=== PATIENT | female | born 1960 | race Caucasian/White ===

== ENCOUNTER 2022-06-04 17:39 | Emergency (ER) | payer OTHER, SELFPAY ==
--- NOTE | ~2022-06-04 | CT_ITS ---
EXAMINATION: CT BRAIN WITHOUT CONTRAST. CHEST. CLINICAL INFORMATION: AMS. COMPARISON: None TECHNIQUE: Chest one view. 5 mm thin axial and reformatted 2 mm thin sagittal and coronal images of brain were obtained. DLP [id number] examination was performed using dose optimization technique as appropriate, variously including the following: Automated exposure control Adjustment of MA and/or KV according to patient size(this includes techniques or standardized protocols for targeted exams where dose is matched to indication/reason for exam; extremities or head. Use of iterative reconstruction techniques. FINDINGS: Chest: The lungs are hypoexpanded but clear of acute process. The heart size and pulmonary vascularity is normal. No gross bony abnormality seen. Brain: There is no acute intra-axial, extra-axial bleed, masses or midline shift there is no acute infarction evolution. There is no edema. The anand to white matter difference is maintained normal. The lateral ventricles are symmetrical in size and configuration without enlargement. Bone windows reveal no calvarial abnormality. No scalp soft tissue abnormality seen. Is mild mucoperiosteal thickening bilateral maxillary and left anterior ethmoid sinus. There is partial opacification of mastoid sinuses slightly greater on the left with a soft tissue density in the left middle meatus. There are surgical sutures in the right subcondylar mandible likely for an old healed fracture. CT/CT head/brain wo IV con IMPRESSION: Unremarkable chest exam. No acute intracranial process seen. Chronic bilateral maxillary and anterior ethmoid sinus inflammatory changes.
--- NOTE | 2022-06-04 17:44 | ED.AMS ---
HPI - Altered Mental Status General Chief Complaint: Neuro Symptoms/Deficit Stated Complaint: AMS, confusion per EMS Time Seen by Provider: 06/04/22 17:44 Source: EMS Mode of arrival: EMS History of Present Illness HPI narrative: Patient history of seizures otherwise healthy patient came back from work at 16:00 noted the patient is still in the bed confused no history of fall patient was normal yesterday had seizure about 2 years ago patient takes Tegretol. No signs of injury patient was normal last night left for work at 05:30 and at that time patient was sleeping Related Data Previous Rx's Medication Instructions Recorded levetiracetam 500 mg tablet 500 mg PO BID #60 tabs 06/04/22 (Keppra) Allergies Allergy/AdvReac Type Severity Reaction Status Date / Time codeine [CODEINE] Allergy Unknown ITCHING Unverified 02/11/20 19:20 Review of Systems Review of Systems: Yes all other systems are reviewed and are negative [facility] Past Medical History Medical History (Updated 06/05/22 @ 00:00 by Lucrecia Adams) Epilepsy Social History Social History Advance Directives: No Advance Directives Information Provided: Yes Physical Exam ED Vital Signs: Vital Signs - 24 hr 06/04/22 17:57 Temperature 99.0 F Pulse Rate 106 H Respiratory Rate 16 Blood Pressure 134/63 Pulse Oximetry 98 Oxygen Delivery Method Room Air BMI result Body Mass Index 26.9 Appearance: Alert. Oriented X1-2. Confused No acute distress. Eyes: PERRLA, No Nystagmus HEENT: Pharynx normal. Oral Mucosa moist atraumatic normocephalic no tongue bite Neck: Normal inspection. Neck supple. CVS: Normal heart rate and rhythm. Pulses normal. Respiratory: No respiratory distress. Equal air entry bilateral, no wheezing/rales/rhonchi Abdomen: Soft and nontender. Bowel sounds are present, no mass palpable, no CVA tenderness Skin: Skin warm and dry. Normal skin color. Normal skin turgor. Extremities: No lower extremity edema. No calf tenderness Neuro: Oriented X 1-2. Confuse, normal speech No motor deficit. No sensory deficit.No cerebellar signs , cranial nerves II-XII intact Course Reevaluation(s) Reevaluation #1: Patient just had a tonic-clonic seizure lasted for 1 minutes will give Ativan 2 mg and Keppra Time: 18:11 Medications Administered Discontinued Medications Generic Name Dose Route Start Last Admin Trade Name Luis PRN Reason Stop Dose Admin Sodium Chloride 1,000 mls @ 999 mls/hr 06/04/22 17:47 06/04/22 20:02 Ns IV 06/04/22 18:47 Infused .Q1H1M ONE Infusion Levetiracetam 1,000 mg in 100 mls @ 400 mls/hr 06/04/22 18:45 06/04/22 19:46 Keppra IV 06/04/22 18:59 Infused ONCE ONE Infusion Sodium Chloride 1,000 mls @ 999 mls/hr 06/04/22 18:54 06/04/22 20:03 Ns IV 06/04/22 19:54 999 mls/hr .Q1H1M ONE Administration Lorazepam 2 mg 06/04/22 18:13 06/04/22 18:15 Lorazepam 2 Mg/Ml Vial IVPUSH 06/04/22 18:14 2 mg ONCE STA Administration Ondansetron HCl 4 mg 06/04/22 20:00 06/04/22 20:03 Ondansetron Hcl 4 Mg/2 Ml Vial IVPUSH 06/04/22 20:01 4 mg ONCE ONE Administration Medical Decision Making Medical Decision Making [facility] Narrative: Patient history of seizures for the last 5 years on Tegretol level is therapeutic last seizure was 2 years ago came here with altered mental status patient had a witnessed seizure in the ER. During stay in the ED patient became more oriented says that she had a seizure earlier today and she took extra Tegretol she is pretty compliant with medication carbamazepine 200 mg twice daily. As patient had repeated episode of seizures will add patient on Keppra 500 mg twice daily advised to continue carbamazepine follow-up with Dr. Ames her neurologist Lab Data MDM Lab Attestation statement: I reviewed the patient's lab results. 06/04/22 18:21 06/04/22 18:53 Labs: Lab Results 06/04/22 06/04/22 06/04/22 Range/Units 17:49 18:21 18:21 WBC 12.4 H (4.8-10.8) X10*3/uL RBC 4.63 (4.20-5.50) X10*6/uL Hgb 14.5 (12.0-16.0) g/dl Hct 43.7 (37.0-47.0) % MCV 94.4 (80.0-98.0) fL MCH 31.3 (27.0-33.0) pg MCHC 33.2 (31.0-35.0) g/dl RDW 11.9 (11.0-16.0) % Plt Count 258 (160-400) X10*3/uL MPV 10.2 (9.4-12.3) fL Immature Gran % (Auto) 0.4 (0.0-0.4) % Neut % (Auto) 87.6 H (45-73) % Lymph % (Auto) 8.3 L (20-40) % [place] % (Auto) 3.2 (2-11) % Eos % (Auto) 0.0 (0-4) % Baso % (Auto) 0.5 (0-2) % Lymph # (Auto) 1.0 L (1.2-4.9) X10*3/uL [place] # (Auto) 0.4 (0.1-1.2) X10*3/uL Eos # (Auto) 0.0 (0.0-0.4) X10*3/uL Baso # (Auto) 0.1 (0.0-0.2) X10*3/uL Abs Immat Gran (auto) 0.05 H (0.00-0.03) X10*3/uL Absolute Neuts (auto) 10.8 H (2.0-8.3) x10*3/uL Absolute Nucleated RBC 0.000 (0.0-0.012) X10*3/uL Nucleated RBC % (auto) 0.0 (0.0-0.2) /100WBC PT (10.0-13.1) SEC INR (0.9-1.1) Sodium (135-145) mmol/L Potassium (3.3-5.1) mmol/L Chloride (96-108) mmol/L Carbon Dioxide (22-29) mmol/L Anion Gap (12-20) BUN (9-16) mg/dL Creatinine (0.5-1.4) mg/dL Estim Creat Clear Calc Estimated GFR POC Glucose 133 H (60-115) mg/dL Random Glucose (60-115) mg/dL Lactic Acid 2.9 H* (0.5-2.0) mmol/L Lactic Acid F/U @ 2Hr (0.5-2.0) mmol/L Calcium (8.4-10.2) mg/dL Magnesium (1.6-2.6) mg/dL Total Bilirubin (0.0-1.0) mg/dL AST (5-31) U/L ALT (0-31) U/L Alkaline Phosphatase (39-117) U/L Ammonia (13-55) umol/L Troponin I High Sens (<3.5-17.0) ng/L Total Protein (6.5-8.0) g/dL Albumin (3.5-5.0) g/dL Urine Color Urine Appearance Urine pH (5.0-9.0) Ur Specific [place] (1.005-1.025) Urine Protein (Neg-Trace) mg/dL Urine Glucose (UA) (Negative) mg/dL Urine Ketones (Negative) mg/dL Urine Blood (Negative) Urine Nitrite (Negative) Ur Leukocyte Esterase (Negative) Urine RBC (0-2) /HPF Urine WBC (0-5) /HPF Ur Squamous Epith Cells (0-2) /HPF Urine Bacteria (None Seen) Hyaline Casts (0-2) /LPF Urine Opiates Screen (Not Detect) Urine Fentanyl Screen (Not Detect) Ur Barbiturates Screen (Not Detect) Carbamazepine (5.0-12.0) mcg/mL Ur Phencyclidine Scrn (Not Detect) Ur Amphetamines Screen (Not Detect) U Benzodiazepines Scrn (Not Detect) Urine Cocaine Screen (Not Detect) U Marijuana (THC) Screen (Not Detect) COVID-19 (YVETTE) (Negative) COVID-19 Clin Com 06/04/22 06/04/22 06/04/22 Range/Units 18:53 18:53 19:09 WBC (4.8-10.8) X10*3/uL RBC (4.20-5.50) X10*6/uL Hgb (12.0-16.0) g/dl Hct (37.0-47.0) % MCV (80.0-98.0) fL MCH (27.0-33.0) pg MCHC (31.0-35.0) g/dl RDW (11.0-16.0) % Plt Count (160-400) X10*3/uL MPV (9.4-12.3) fL Immature Gran % (Auto) (0.0-0.4) % Neut % (Auto) (45-73) % Lymph % (Auto) (20-40) % [place] % (Auto) (2-11) % Eos % (Auto) (0-4) % Baso % (Auto) (0-2) % Lymph # (Auto) (1.2-4.9) X10*3/uL [place] # (Auto) (0.1-1.2) X10*3/uL Eos # (Auto) (0.0-0.4) X10*3/uL Baso # (Auto) (0.0-0.2) X10*3/uL Abs Immat Gran (auto) (0.00-0.03) X10*3/uL Absolute Neuts (auto) (2.0-8.3) x10*3/uL Absolute Nucleated RBC (0.0-0.012) X10*3/uL Nucleated RBC % (auto) (0.0-0.2) /100WBC PT (10.0-13.1) SEC INR (0.9-1.1) Sodium 139 (135-145) mmol/L Potassium 4.5 (3.3-5.1) mmol/L Chloride 107 (96-108) mmol/L Carbon Dioxide 21 L (22-29) mmol/L Anion Gap 16 (12-20) BUN 13 (9-16) mg/dL Creatinine 0.74 (0.5-1.4) mg/dL Estim Creat Clear Calc 88.1 Estimated GFR > 60 POC Glucose (60-115) mg/dL Random Glucose 150 H (60-115) mg/dL Lactic Acid (0.5-2.0) mmol/L Lactic Acid F/U @ 2Hr (0.5-2.0) mmol/L Calcium 8.7 (8.4-10.2) mg/dL Magnesium 1.7 (1.6-2.6) mg/dL Total Bilirubin 0.2 (0.0-1.0) mg/dL AST 12 (5-31) U/L ALT 11 (0-31) U/L Alkaline Phosphatase 85 (39-117) U/L Ammonia 47 (13-55) umol/L Troponin I High Sens (<3.5-17.0) ng/L Total Protein 6.8 (6.5-8.0) g/dL Albumin 4.0 (3.5-5.0) g/dL Urine Color Urine Appearance Urine pH (5.0-9.0) Ur Specific [place] (1.005-1.025) Urine Protein (Neg-Trace) mg/dL Urine Glucose (UA) (Negative) mg/dL Urine Ketones (Negative) mg/dL Urine Blood (Negative) Urine Nitrite (Negative) Ur Leukocyte Esterase (Negative) Urine RBC (0-2) /HPF Urine WBC (0-5) /HPF Ur Squamous Epith Cells (0-2) /HPF Urine Bacteria (None Seen) Hyaline Casts (0-2) /LPF Urine Opiates Screen (Not Detect) Urine Fentanyl Screen (Not Detect) Ur Barbiturates Screen (Not Detect) Carbamazepine (5.0-12.0) mcg/mL Ur Phencyclidine Scrn (Not Detect) Ur Amphetamines Screen (Not Detect) U Benzodiazepines Scrn (Not Detect) Urine Cocaine Screen (Not Detect) U Marijuana (THC) Screen (Not Detect) COVID-19 (YVETTE) Negative (Negative) COVID-19 Clin Com See Note 06/04/22 06/04/22 06/04/22 Range/Units 19:09 19:09 19:09 WBC (4.8-10.8) X10*3/uL RBC (4.20-5.50) X10*6/uL Hgb (12.0-16.0) g/dl Hct (37.0-47.0) % MCV (80.0-98.0) fL MCH (27.0-33.0) pg MCHC (31.0-35.0) g/dl RDW (11.0-16.0) % Plt Count (160-400) X10*3/uL MPV (9.4-12.3) fL Immature Gran % (Auto) (0.0-0.4) % Neut % (Auto) (45-73) % Lymph % (Auto) (20-40) % [place] % (Auto) (2-11) % Eos % (Auto) (0-4) % Baso % (Auto) (0-2) % Lymph # (Auto) (1.2-4.9) X10*3/uL [place] # (Auto) (0.1-1.2) X10*3/uL Eos # (Auto) (0.0-0.4) X10*3/uL Baso # (Auto) (0.0-0.2) X10*3/uL Abs Immat Gran (auto) (0.00-0.03) X10*3/uL Absolute Neuts (auto) (2.0-8.3) x10*3/uL Absolute Nucleated RBC (0.0-0.012) X10*3/uL Nucleated RBC % (auto) (0.0-0.2) /100WBC PT 12.0 (10.0-13.1) SEC INR 1.0 (0.9-1.1) Sodium (135-145) mmol/L Potassium (3.3-5.1) mmol/L Chloride (96-108) mmol/L Carbon Dioxide (22-29) mmol/L Anion Gap (12-20) BUN (9-16) mg/dL Creatinine (0.5-1.4) mg/dL Estim Creat Clear Calc Estimated GFR POC Glucose (60-115) mg/dL Random Glucose (60-115) mg/dL Lactic Acid (0.5-2.0) mmol/L Lactic Acid F/U @ 2Hr (0.5-2.0) mmol/L Calcium (8.4-10.2) mg/dL Magnesium (1.6-2.6) mg/dL Total Bilirubin (0.0-1.0) mg/dL AST (5-31) U/L ALT (0-31) U/L Alkaline Phosphatase (39-117) U/L Ammonia (13-55) umol/L Troponin I High Sens 16.6 (<3.5-17.0) ng/L Total Protein (6.5-8.0) g/dL Albumin (3.5-5.0) g/dL Urine Color Urine Appearance Urine pH (5.0-9.0) Ur Specific [place] (1.005-1.025) Urine Protein (Neg-Trace) mg/dL Urine Glucose (UA) (Negative) mg/dL Urine Ketones (Negative) mg/dL Urine Blood (Negative) Urine Nitrite (Negative) Ur Leukocyte Esterase (Negative) Urine RBC (0-2) /HPF Urine WBC (0-5) /HPF Ur Squamous Epith Cells (0-2) /HPF Urine Bacteria (None Seen) Hyaline Casts (0-2) /LPF Urine Opiates Screen (Not Detect) Urine Fentanyl Screen (Not Detect) Ur Barbiturates Screen (Not Detect) Carbamazepine 12.5 H (5.0-12.0) mcg/mL Ur Phencyclidine Scrn (Not Detect) Ur Amphetamines Screen (Not Detect) U Benzodiazepines Scrn (Not Detect) Urine Cocaine Screen (Not Detect) U Marijuana (THC) Screen (Not Detect) COVID-19 (YVETTE) (Negative) COVID-19 Clin Com 06/04/22 06/04/22 06/04/22 Range/Units 20:11 20:11 21:46 WBC (4.8-10.8) X10*3/uL RBC (4.20-5.50) X10*6/uL Hgb (12.0-16.0) g/dl Hct (37.0-47.0) % MCV (80.0-98.0) fL MCH (27.0-33.0) pg MCHC (31.0-35.0) g/dl RDW (11.0-16.0) % Plt Count (160-400) X10*3/uL MPV (9.4-12.3) fL Immature Gran % (Auto) (0.0-0.4) % Neut % (Auto) (45-73) % Lymph % (Auto) (20-40) % [place] % (Auto) (2-11) % Eos % (Auto) (0-4) % Baso % (Auto) (0-2) % Lymph # (Auto) (1.2-4.9) X10*3/uL [place] # (Auto) (0.1-1.2) X10*3/uL Eos # (Auto) (0.0-0.4) X10*3/uL Baso # (Auto) (0.0-0.2) X10*3/uL Abs Immat Gran (auto) (0.00-0.03) X10*3/uL Absolute Neuts (auto) (2.0-8.3) x10*3/uL Absolute Nucleated RBC (0.0-0.012) X10*3/uL Nucleated RBC % (auto) (0.0-0.2) /100WBC PT (10.0-13.1) SEC INR (0.9-1.1) Sodium (135-145) mmol/L Potassium (3.3-5.1) mmol/L Chloride (96-108) mmol/L Carbon Dioxide (22-29) mmol/L Anion Gap (12-20) BUN (9-16) mg/dL Creatinine (0.5-1.4) mg/dL Estim Creat Clear Calc Estimated GFR POC Glucose (60-115) mg/dL Random Glucose (60-115) mg/dL Lactic Acid (0.5-2.0) mmol/L Lactic Acid F/U @ 2Hr 1.3 (0.5-2.0) mmol/L Calcium (8.4-10.2) mg/dL Magnesium (1.6-2.6) mg/dL Total Bilirubin (0.0-1.0) mg/dL AST (5-31) U/L ALT (0-31) U/L Alkaline Phosphatase (39-117) U/L Ammonia (13-55) umol/L Troponin I High Sens (<3.5-17.0) ng/L Total Protein (6.5-8.0) g/dL Albumin (3.5-5.0) g/dL Urine Color Yellow Urine Appearance Turbid Urine pH 5.5 (5.0-9.0) Ur Specific [place] 1.020 (1.005-1.025) Urine Protein 30 (1+) H (Neg-Trace) mg/dL Urine Glucose (UA) Negative (Negative) mg/dL Urine Ketones Negative (Negative) mg/dL Urine Blood Trace H (Negative) Urine Nitrite Negative (Negative) Ur Leukocyte Esterase Moderate (2+) H (Negative) Urine RBC 6-10 H (0-2) /HPF Urine WBC 6-10 (0-5) /HPF Ur Squamous Epith Cells 11-20 (0-2) /HPF Urine Bacteria 4+ (None Seen) Hyaline Casts 3-5 (0-2) /LPF Urine Opiates Screen Not Detected (Not Detect) Urine Fentanyl Screen Not Detected (Not Detect) Ur Barbiturates Screen Not Detected (Not Detect) Carbamazepine (5.0-12.0) mcg/mL Ur Phencyclidine Scrn Not Detected (Not Detect) Ur Amphetamines Screen Not Detected (Not Detect) U Benzodiazepines Scrn Not Detected (Not Detect) Urine Cocaine Screen Not Detected (Not Detect) U Marijuana (THC) Screen Not Detected (Not Detect) COVID-19 ([facility]VETTE) (Negative) COVID-19 Clin Com Discharge Plan Discharge Clinical Impression: Seizure disorder Patient Disposition: Home, Self-Care Instructions: Epilepsy (ED) Additional Instructions: Drink plenty of fluids Continue her Tegretol Will add Keppra 500 mg twice daily Follow-up with neurologist Prescriptions: New levetiracetam [Keppra] 500 mg tablet 500 mg PO BID Qty: 60 0RF Interventions: ED Discharge Assessment Last Done: 06/04/22 23:07 Discharge Date/Time: 06/04/22 23:07
--- NOTE | 2022-06-04 17:48 | ECG_ITS ---
Test Reason : ALTERED MENTAL STATUS Blood Pressure : / mmHG Vent. Rate : 101 BPM Atrial Rate : 101 BPM P-R Int : 154 ms QRS Dur : 076 ms QT Int : 328 ms P-R-T Axes : 032 -01 039 degrees QTc Int : 425 ms Sinus tachycardia Otherwise normal ECG When compared with ECG of 16-FEB-2017 15:19, No significant change was found Referred By: Hay Hua Electronically Signed By:Rasheed Gerber
[2022-06-04 17:57] VITALS: BP 124/84; BP 134/63; PULSE 106; PULSE 114; RESP 16; TEMP 37.2; O2SAT 96; O2SAT 98; BMI 26.9
--- NOTE | 2022-06-04 18:01 | PC.NURSE ---
patient currently awake, unable to follow most commands, unable to answer triage questions, vitals stable.
[2022-06-04 18:06] LABS: Glucose, Whole Blood 133 mg/dL (60-115)
[2022-06-04] MEDS: LORazepam 2 MG/ML VIAL IVPUSH (18:15)
[2022-06-04 18:26] LABS: MANUAL DIFF FLAG NO
[2022-06-04 18:28] LABS: Basophils Absolute Auto 0.1 X10*3/uL (0.0-0.2); Basophils Percent Auto 0.5 % (0-2); Hematocrit 43.7 % (37.0-47.0); Hemoglobin 14.5 g/dl (12.0-16.0); Imm Gran Abs Auto 0.05 X10*3/uL (0.00-0.03); Imm Gran Pct Auto 0.4 % (0.0-0.4); Lymphocytes Percent Auto 8.3 % (20-40); Mean Corpuscular HGB Conc 33.2 g/dl (31.0-35.0); Mean Corpuscular Hemoglobin 31.3 pg (27.0-33.0); Mean Corpuscular Volume 94.4 fL (80.0-98.0); Mean Platelet Volume 10.2 fL (9.4-12.3); Monocytes Absolute Auto 0.4 X10*3/uL (0.1-1.2); Monocytes Percent Auto 3.2 % (2-11); Neutrophils Absolute Auto 10.8 x10*3/uL (2.0-8.3); Neutrophils Percent Auto 87.6 % (45-73); Platelet Count 258 X10*3/uL (160-400); Red Blood Count 4.63 X10*6/uL (4.20-5.50); Red Cell Distribution Width 11.9 % (11.0-16.0); White Blood Count 12.4 X10*3/uL (4.8-10.8)
[2022-06-04] MEDS: 0.9 % Sodium Chloride 1,000 ML 999 ML IV ×2 (18:29→20:03)
[2022-06-04] MEDS: levETIRAcetam in NaCl (iso-os) 1,000 MG/100 ML PIGGYBACK 400 MG IV (18:37)
[2022-06-04 18:48] LABS: Lactic Acid 2.9 mmol/L (0.5-2.0)
[2022-06-04 19:15] LABS: COVID-19 Test Negative (Negative); IDNOW Serial# 55D5AD1C
[2022-06-04 19:16] LABS: Alanine Aminotransferase 11 U/L (0-31); Alkaline Phosphatase 85 U/L (39-117); Anion Gap 16 (12-20); Aspartate Amino Transferase 12 U/L (5-31); Bilirubin Total 0.2 mg/dL (0.0-1.0); Blood Urea Nitrogen 13 mg/dL (9-16); Calcium 8.7 mg/dL (8.4-10.2); Carbon Dioxide 21 mmol/L (22-29); Chloride 107 mmol/L (96-108); Creatinine Clr Calc Pharmacy 88.1; Estimated Glomerular Filt Rate > 60; Glucose Random 150 mg/dL (60-115); Magnesium 1.7 mg/dL (1.6-2.6); Potassium 4.5 mmol/L (3.3-5.1); Sodium 139 mmol/L (135-145); Total Protein 6.8 g/dL (6.5-8.0)
[2022-06-04 19:25] LABS: Ammonia 47 umol/L (13-55)
[2022-06-04 19:34] LABS: Carbamazepine Tegretol 12.5 mcg/mL (5.0-12.0)
[2022-06-04 19:40] LABS: Troponin-I High Sensitivity 16.6 ng/L (<3.5-17.0)
--- NOTE | 2022-06-04 19:40 | PC.NURSE ---
pt arrived to ED AMS, confused, unable to answer questions, 20G IV placed right wrist, partial labs drawn. pt proceeded to have grand mal seizure lasting for ~60sec - O2 applied, O2 sat dropped to 79% with dusky appearance to face, medicated per provider order w IV ativan, 1L NS, 1g keppra. add'l 20G placed left forearm, remainder of labs obtained. pt to CT. at bedside.
[2022-06-04] MEDS: ondansetron HCL 4 MG/2 ML VIAL IVPUSH (20:03)
[2022-06-04 20:20] LABS: Appearance Urine Turbid; Color Urine Yellow; Glucose Urine UA Negative (Negative); Leukocyte Esterase Urine Moderate (2+) (Negative); Nitrite Urine Negative (Negative); PH 5.5 (5.0-9.0); UMIC TRIGGER UACC YES; Urine Blood Trace (Negative); Urine Ketones Negative (Negative); Urine Protein 30 (1+) mg/dL (Neg-Trace)
[2022-06-04 20:26] LABS: Reflex Lactate? Lactic Acid Added
[2022-06-04 20:29] LABS: Amphetamine Screen Urine Not Detected (Not Detect); Barbiturates, Urine Not Detected (Not Detect); Benzodiazepines Screen Urine Not Detected (Not Detect); Cannabinoid Screen Urine Not Detected (Not Detect); Cocaine Screen Urine Not Detected (Not Detect); Fentanyl, urine Not Detected (Not Detect); Opiate Screen Urine Not Detected (Not Detect); Phencyclidine Screen Urine Not Detected (Not Detect)
[2022-06-04 20:41] LABS: Bacteria Urine 4+ (None Seen); UACC Culture Trigger YES
[2022-06-04 22:08] LABS: ~Lactic Acid-LAB USE ONLY 1.3 mmol/L (0.5-2.0)
== END 2022-06-04 23:07 | disposition home or self-care (01) ==
PROVIDERS: Emergency Provider Internal Medicine
DX: G40.909 Epilepsy, unspecified, not intractable, without status epilepticus (principal); Z20.822 Contact with and (suspected) exposure to COVID-19
CPT/HCPCS: 36415; 70450; 71045; 80053; 80156; 80307; 81001; 82140; 82947; 83605; 83735; 84484; 85025; 85610; 87040; 87086; 87635; 93005; 96361; 96365; 96375; 99284; J1953; J2060; J2405